=== PATIENT | male | born 1980 | race African-American/Black ===

== ENCOUNTER 2019-02-03 15:09 | Inpatient (IN) | payer MEDICAID ==
[~2019-02-03] VITALS: Ht 182.9 cm; Wt 87.1 kg
[~2019-02-03 15:09] MED LIST: BUPR-93 PO; OLAN10TA6 PO; OMEP20 PO
[2019-02-03] MEDS ORDERED: MIDAZOLAM HCL 5 MG/ML VIAL ONE (15:36)
[2019-02-03] MEDS ORDERED: MIDAZOLAM HCL 5 MG/ML VIAL IM ONE (15:45)
[2019-02-03] MEDS ORDERED: LORazepam 2 MG TABLET PO ONE ×2 (16:30→20:15)
[2019-02-03] MEDS ORDERED: QUEtiapine FUMARATE 100 MG TABLET PO ONE (16:45)
[2019-02-03] MEDS ORDERED: GLYCERIN 1 GM RECTAL SUPPOSITORY [PEDIATRIC] PR ONE (17:00)
[2019-02-03 17:30] LABS: BASOPHILS % (AUTO) 0.4 % (0.0-2.0); EOSINOPHILS % (AUTO) 0.2 % (1.0-6.0); HEMOGLOBIN 17.7 g/dL (13.5-17.5); LYMPHOCYTES # (AUTO) 2.1 K/uL (1.0-4.8); LYMPHOCYTES % (AUTO) 33.7 % (22.0-44.0); MEAN CORPUSCULAR HEMOGLOBIN 29.7 pg (26.0-34.0); MEAN CORPUSCULAR HGB CONC 33.3 G/dL (31.0-37.0); MEAN CORPUSCULAR VOLUME 89 fL (80-100); MONOCYTES # (AUTO) 0.7 K/uL (0.1-1.0); MONOCYTES % (AUTO) 11.9 % (2.0-9.0); NEUTROPHILS # (AUTO) 3.3 K/uL (1.8-7.7); NEUTROPHILS % (AUTO) 53.8 % (40.0-70.0); PLATELET COUNT (AUTO) 299 K/uL (150-450); RED BLOOD CELL COUNT(AUTO) 5.95 MIL/uL (4.50-5.90); RED CELL DISTRIBUTION WIDTH 14.2 % (11.5-14.5)
[2019-02-03 17:36] LABS: ANION GAP 8 mmol/L (8-16); CARBON DIOXIDE 30 mmol/L (22-29); CHLORIDE 97 mmol/L (98-107); CREATININE 0.86 mg/dL (0.60-1.30); GLOMERULAR FILTR. RATE CALC > 60 mL/min (>60); GLUCOSE,RANDOM 114 mg/dL (70-110); POTASSIUM 3.3 mmol/L (3.5-5.1); SODIUM SERUM 135 mmol/L (136-145); UREA NITROGEN, BLOOD 3 mg/dL (7-18)
[2019-02-03 17:46] LABS: ALANINE AMINOTRANSFERASE 47 U/L (12-78); ALBUMIN 4.6 g/dL (3.4-5.0); ALKALINE PHOSPHATASE 76 U/L (46-116); ASPARTATE AMINOTRANSFERASE 35 U/L (15-37); BILIRUBIN,TOTAL 0.6 mg/dL (0.1-1.0); TOTAL PROTEIN, SERUM 9.2 g/dL (6.4-8.2)
[2019-02-03 18:17] LABS: ACETAMINOPHEN < 2 mcg/mL (10-30)
[2019-02-03 18:23] LABS: SALICYLATE < 2.8 mg/dL (2.8-20.0)
[2019-02-03 18:30] LABS: PLATELET MORPHOLOGY COMMENT LARGE PLTS PRESENT
[2019-02-03] MEDS ORDERED: POTASSIUM CHLORIDE 20 MEQ ER TABLET PO ONE (18:45)
[2019-02-03 19:24] LABS: AMPHET/METH SCREEN,URINE POSITIVE (NEGATIVE); BARBITURATE SCREEN, URINE NEGATIVE (NEGATIVE); BENZODIAZEPINES SCREEN,URINE POSITIVE (NEGATIVE); CANNABINOID SCREEN,URINE NEGATIVE (NEGATIVE); COCAINE SCREEN,URINE POSITIVE (NEGATIVE); METHADONE SCREEN, URINE NEGATIVE (NEGATIVE); OPIATE SCREEN,URINE NEGATIVE (NEGATIVE)
[2019-02-03 19:27] LABS: PHENCYCLIDINE SCREEN,URINE NEGATIVE (NEGATIVE)
[2019-02-03] MEDS ORDERED: LORazepam 1 MG TABLET PO ONE (20:00)
[2019-02-03] MEDS ORDERED: ChlorproMAZINE HCL 25 MG TABLET PO ONE (20:00)
[2019-02-04 01:02] VITALS: BP 133/87
[2019-02-04 08:57] VITALS: BP 136/82
[2019-02-04] MEDS: LORazepam 2 MG TABLET PO PRN (09:04)
[2019-02-04] MEDS: ChlorproMAZINE HCL 50 MG TABLET PO SCH ×2 (10:25→20:35)
[2019-02-04 16:06] VITALS: BP 135/86
[2019-02-05 08:07] VITALS: BP 100/55
[2019-02-05] MEDS: ChlorproMAZINE HCL 50 MG TABLET PO SCH ×2 (08:12→20:00)
[2019-02-05] MEDS ORDERED: POTASSIUM CHLORIDE 20 MEQ ER TABLET PO ONE (13:00)
[2019-02-05 16:01] VITALS: BP 115/71
[2019-02-05 16:04] VITALS: BP 137/75
[2019-02-06] MEDS: LORazepam 2 MG TABLET PO PRN ×3 (00:59→20:54)
[2019-02-06 01:00] VITALS: BP 117/93
[2019-02-06 08:24] VITALS: BP 116/62
[2019-02-06] MEDS: ChlorproMAZINE HCL 50 MG TABLET PO SCH ×2 (08:30→20:53)
[2019-02-06 08:41] LABS: ANION GAP 9 mmol/L (8-16); CALCIUM, TOTAL 8.8 mg/dL (8.8-10.5); CARBON DIOXIDE 27 mmol/L (22-29); CHLORIDE 101 mmol/L (98-107); CREATININE 0.75 mg/dL (0.60-1.30); GLOMERULAR FILTR. RATE CALC > 60 mL/min (>60); GLUCOSE,RANDOM 96 mg/dL (70-110); POTASSIUM 3.6 mmol/L (3.5-5.1); SODIUM SERUM 137 mmol/L (136-145); UREA NITROGEN, BLOOD 7 mg/dL (7-18)
[2019-02-06 16:11] VITALS: BP 114/67
[2019-02-07 05:53] VITALS: BP 122/73
[2019-02-07] MEDS: ChlorproMAZINE HCL 50 MG TABLET PO SCH ×2 (08:53→20:23)
[2019-02-07 16:07] VITALS: BP 131/74
[2019-02-07] MEDS: LORazepam 2 MG TABLET PO PRN (16:16)
[2019-02-08 03:00] VITALS: BP 135/84
[2019-02-08 08:00] VITALS: BP 132/86
[2019-02-08] MEDS: ChlorproMAZINE HCL 50 MG TABLET PO SCH (08:25)
[2019-02-08] MEDS ORDERED: CHLO50 PO ×2 (09:34→10:39)
== END 2019-02-08 14:03 | disposition home or self-care (01) | DRG 750 ==
LOC: EMS 15:10 → B3A 19:09
DX: F25.0 Schizoaffective disorder, bipolar type (principal); Z91.14 Patient's other noncompliance with medication regimen; E87.6 Hypokalemia; F31.9 Bipolar disorder, unspecified; F41.9 Anxiety disorder, unspecified; G47.00 Insomnia, unspecified; I10 Essential (primary) hypertension; K59.00 Constipation, unspecified; F15.10 Other stimulant abuse, uncomplicated; F14.10 Cocaine abuse, uncomplicated; T45.0X2A Poisoning by antiallergic and antiemetic drugs, intentional self-harm, initial encounter; Y92.89 Other specified places as the place of occurrence of the external cause; Z88.8 Allergy status to other drugs, medicaments and biological substances; Z91.5 Personal history of self-harm
CPT/HCPCS: 84132; 93005; G0480; G0481; J2250

== ENCOUNTER 2019-03-11 15:48 | Inpatient (IN) | payer MEDICAID ==
[~2019-03-11] VITALS: Ht 182.9 cm; Wt 90.9 kg
[~2019-03-11 15:48] MED LIST changes: -BUPR-93 PO; +CHLO50 PO; -OLAN10TA6 PO; -OMEP20 PO
[2019-03-11] MEDS ORDERED: LORazepam 2 MG/ML VIAL IM ONE (16:15)
[2019-03-11] MEDS ORDERED: TUBERCULIN, PURIFIED PROTEIN DERIVATIVE 5 TU/0.1 ML SYRINGE ID ONE (16:45)
[2019-03-11] MEDS ORDERED: ACETAMINOPHEN 325 MG TABLET PO PRN (16:45)
[2019-03-11] MEDS ORDERED: LOPERAMIDE HCL 2 MG CAPSULE PO PRN (16:45)
[2019-03-11] MEDS ORDERED: GuaiFENesin/D-METHORPHAN [SUGAR-FREE] 200-20MG/10 ML SYRUP UDCUP PO PRN (16:45)
[2019-03-11] MEDS ORDERED: LORazepam 2 MG TABLET PO PRN (16:45)
[2019-03-11] MEDS ORDERED: HydrOXYzine PAMOATE 50 MG CAPSULE PO PRN (16:45)
[2019-03-11] MEDS ORDERED: OLANZapine 5 MG RAPDIS TABLET PO PRN (16:45)
[2019-03-11] MEDS ORDERED: PROMETHAZINE HCL 25 MG TABLET PO PRN (16:45)
[2019-03-11] MEDS ORDERED: MAG HYDROX/AL HYDROX/SIMETH ES 30 ML SUSPENSION UDCUP PO PRN (16:45)
[2019-03-11] MEDS ORDERED: MAGNESIUM HYDROXIDE SUSPENSION 30 ML UDCUP PO PRN (16:45)
[2019-03-11 20:11] LABS: BASOPHILS % (AUTO) 1.8 % (0.0-2.0); HEMATOCRIT 42.1 % (41-53); HEMOGLOBIN 14.1 g/dL (13.5-17.5); LYMPHOCYTES # (AUTO) 1.8 K/uL (1.0-4.8); LYMPHOCYTES % (AUTO) 35.5 % (22.0-44.0); MEAN CORPUSCULAR HEMOGLOBIN 29.9 pg (26.0-34.0); MEAN CORPUSCULAR HGB CONC 33.6 G/dL (31.0-37.0); MEAN CORPUSCULAR VOLUME 89 fL (80-100); MONOCYTES # (AUTO) 0.7 K/uL (0.1-1.0); MONOCYTES % (AUTO) 12.8 % (2.0-9.0); NEUTROPHILS # (AUTO) 2.5 K/uL (1.8-7.7); NEUTROPHILS % (AUTO) 48.9 % (40.0-70.0); PLATELET COUNT (AUTO) 203 K/uL (150-450); RED BLOOD CELL COUNT(AUTO) 4.73 MIL/uL (4.50-5.90); RED CELL DISTRIBUTION WIDTH 13.7 % (11.5-14.5)
[2019-03-11 20:16] LABS: ANION GAP 8 mmol/L (8-16); CALCIUM, TOTAL 8.8 mg/dL (8.8-10.5); CARBON DIOXIDE 29 mmol/L (22-29); CHLORIDE 102 mmol/L (98-107); CREATININE 0.73 mg/dL (0.60-1.30); GLOMERULAR FILTR. RATE CALC > 60 mL/min (>60); GLUCOSE,RANDOM 103 mg/dL (70-110); POTASSIUM 3.4 mmol/L (3.5-5.1); SODIUM SERUM 139 mmol/L (136-145); UREA NITROGEN, BLOOD 6 mg/dL (7-18)
[2019-03-11 20:22] LABS: ALANINE AMINOTRANSFERASE 28 U/L (12-78); ALBUMIN 3.2 g/dL (3.4-5.0); ALKALINE PHOSPHATASE 52 U/L (46-116); ASPARTATE AMINOTRANSFERASE 46 U/L (15-37); BILIRUBIN,TOTAL 0.9 mg/dL (0.1-1.0); TOTAL PROTEIN, SERUM 6.9 g/dL (6.4-8.2)
[2019-03-11] MEDS: OLANZapine 5 MG RAPDIS TABLET PO SCH (21:00)
[2019-03-11] MEDS: THIAMINE HCL 100 MG TABLET PO SCH (22:01)
[2019-03-11] MEDS ORDERED: INFLUENZA VIRUS VACCINE QVS 2019-20 (3YR+)/PF 60 MCG/0.5 ML SYRINGE IM ONE (23:00)
[2019-03-12 06:18] VITALS: BP 140/91
[2019-03-12] MEDS ORDERED: ONDANSETRON HCL 4 MG TABLET PO PRN (08:15)
[2019-03-12] MEDS ORDERED: MAG HYDROX/AL HYDROX/SIMETH ES 30 ML SUSPENSION UDCUP PO PRN (08:15)
[2019-03-12] MEDS ORDERED: ACETAMINOPHEN 325 MG TABLET PO PRN (08:15)
[2019-03-12] MEDS ORDERED: ALBUTEROL SULFATE HFA 90 MCG/PUFF 8 GM INHALER IH PRN (08:15)
[2019-03-12] MEDS ORDERED: PETROLATUM,WHITE 28 GM JELLY TP PRN (08:15)
[2019-03-12] MEDS ORDERED: MAGNESIUM HYDROXIDE SUSPENSION 30 ML UDCUP PO PRN (08:15)
[2019-03-12] MEDS: NALTREXONE HCL 50 MG TABLET PO SCH (08:15)
[2019-03-12] MEDS ORDERED: IBUPROFEN 600 MG TABLET PO PRN (08:15)
[2019-03-12] MEDS ORDERED: CloNIDine HCL 0.1 MG TABLET PO PRN (08:15)
[2019-03-12] MEDS: THIAMINE HCL 100 MG TABLET PO SCH ×2 (08:15→16:49)
[2019-03-12] MEDS ORDERED: LOPERAMIDE HCL 2 MG CAPSULE PO PRN (08:15)
[2019-03-12] MEDS: MULTIVITAMINS WITH MINERALS, THERAPEUTIC TABLET PO SCH (08:15)
[2019-03-12] MEDS ORDERED: BENZOCAINE/MENTHOL LOZENGE MM PRN (08:15)
[2019-03-12] MEDS ORDERED: BACITRACIN 28.4 GM OINTMENT TP PRN (08:15)
[2019-03-12] MEDS: FOLIC ACID 1 MG TABLET PO SCH (08:16)
[2019-03-12] MEDS: OMEPRAZOLE 20 MG CAPSULE PO SCH (09:26)
[2019-03-12] MEDS: DOCUSATE SODIUM 100 MG CAPSULE PO SCH (09:26)
[2019-03-12 16:05] VITALS: BP 154/88
[2019-03-12] MEDS: ZOLPIDEM TARTRATE 10 MG TABLET PO PRN (20:44)
[2019-03-12] MEDS: OLANZapine 5 MG RAPDIS TABLET PO SCH (20:44)
[2019-03-13 04:36] VITALS: BP 120/80
[2019-03-13 08:01] VITALS: BP 129/67
[2019-03-13] MEDS: OMEPRAZOLE 20 MG CAPSULE PO SCH (08:02)
[2019-03-13] MEDS: THIAMINE HCL 100 MG TABLET PO SCH ×2 (08:02→16:32)
[2019-03-13] MEDS: FOLIC ACID 1 MG TABLET PO SCH (08:03)
[2019-03-13] MEDS: MULTIVITAMINS WITH MINERALS, THERAPEUTIC TABLET PO SCH (08:03)
[2019-03-13] MEDS: DOCUSATE SODIUM 100 MG CAPSULE PO SCH (08:03)
[2019-03-13] MEDS: NALTREXONE HCL 50 MG TABLET PO SCH (08:03)
[2019-03-13] MEDS ORDERED: POTASSIUM CHLORIDE 20 MEQ ER TABLET PO ONE (09:30)
[2019-03-13 16:01] VITALS: BP 130/71
[2019-03-13] MEDS: OLANZapine 5 MG RAPDIS TABLET PO SCH (20:38)
[2019-03-13] MEDS: ZOLPIDEM TARTRATE 10 MG TABLET PO PRN (20:38)
[2019-03-14 06:31] VITALS: BP 115/68
[2019-03-14] MEDS: FOLIC ACID 1 MG TABLET PO SCH (08:14)
[2019-03-14] MEDS: NALTREXONE HCL 50 MG TABLET PO SCH (08:14)
[2019-03-14] MEDS: OMEPRAZOLE 20 MG CAPSULE PO SCH (08:14)
[2019-03-14] MEDS: DOCUSATE SODIUM 100 MG CAPSULE PO SCH (08:14)
[2019-03-14] MEDS: THIAMINE HCL 100 MG TABLET PO SCH ×2 (08:14→16:52)
[2019-03-14] MEDS: MULTIVITAMINS WITH MINERALS, THERAPEUTIC TABLET PO SCH (08:14)
[2019-03-14 08:22] VITALS: BP 125/69
[2019-03-14 16:10] VITALS: BP 129/93
[2019-03-14] MEDS: DIVALPROEX SODIUM 500 MG ER TABLET PO SCH (20:32)
[2019-03-14] MEDS: OLANZapine 5 MG RAPDIS TABLET PO SCH (20:36)
[2019-03-15 08:00] VITALS: BP 113/71
[2019-03-15] MEDS: FOLIC ACID 1 MG TABLET PO SCH (08:00)
[2019-03-15] MEDS: OMEPRAZOLE 20 MG CAPSULE PO SCH (08:00)
[2019-03-15] MEDS: THIAMINE HCL 100 MG TABLET PO SCH ×2 (08:00→16:01)
[2019-03-15] MEDS: NALTREXONE HCL 50 MG TABLET PO SCH (08:00)
[2019-03-15] MEDS: DOCUSATE SODIUM 100 MG CAPSULE PO SCH (08:00)
[2019-03-15] MEDS: MULTIVITAMINS WITH MINERALS, THERAPEUTIC TABLET PO SCH (08:00)
[2019-03-15 16:02] VITALS: BP 125/75
[2019-03-15] MEDS: OLANZapine 10 MG RAPDIS TABLET PO SCH (20:19)
[2019-03-15] MEDS: DIVALPROEX SODIUM 500 MG ER TABLET PO SCH (20:19)
[2019-03-16] MEDS: FOLIC ACID 1 MG TABLET PO SCH (08:04)
[2019-03-16] MEDS: MULTIVITAMINS WITH MINERALS, THERAPEUTIC TABLET PO SCH (08:04)
[2019-03-16] MEDS: NALTREXONE HCL 50 MG TABLET PO SCH (08:04)
[2019-03-16] MEDS: DOCUSATE SODIUM 100 MG CAPSULE PO SCH (08:04)
[2019-03-16] MEDS: OMEPRAZOLE 20 MG CAPSULE PO SCH (08:04)
[2019-03-16] MEDS: THIAMINE HCL 100 MG TABLET PO SCH ×2 (08:05→16:22)
[2019-03-16 16:01] VITALS: BP 125/73
[2019-03-16] MEDS: ZOLPIDEM TARTRATE 10 MG TABLET PO PRN (20:42)
[2019-03-16] MEDS: DIVALPROEX SODIUM 500 MG ER TABLET PO SCH (20:42)
[2019-03-16] MEDS: OLANZapine 10 MG RAPDIS TABLET PO SCH (20:43)
[2019-03-17 05:02] VITALS: BP 128/76
[2019-03-17] MEDS: NALTREXONE HCL 50 MG TABLET PO SCH (08:27)
[2019-03-17] MEDS: MULTIVITAMINS WITH MINERALS, THERAPEUTIC TABLET PO SCH (08:27)
[2019-03-17] MEDS: THIAMINE HCL 100 MG TABLET PO SCH (08:28)
[2019-03-17] MEDS: FOLIC ACID 1 MG TABLET PO SCH (08:28)
[2019-03-17] MEDS: OMEPRAZOLE 20 MG CAPSULE PO SCH (08:28)
[2019-03-17] MEDS: DOCUSATE SODIUM 100 MG CAPSULE PO SCH (08:28)
[2019-03-17] MEDS ORDERED: NALT50TA6 PO (12:08)
[2019-03-17] MEDS ORDERED: OLAN20TA35 PO (12:08)
[2019-03-17] MEDS ORDERED: DIVA500T52 PO (12:08)
== END 2019-03-17 15:25 | disposition home or self-care (01) | DRG 750 ==
LOC: EMS 15:49 → B3A 19:18
PROVIDERS: ADMIT Psychiatry & Neurology Psychiatry; ATTEND Psychiatry & Neurology Psychiatry
DX: F25.0 Schizoaffective disorder, bipolar type (principal); Z91.19 Patient's noncompliance with other medical treatment and regimen; F10.10 Alcohol abuse, uncomplicated; F15.10 Other stimulant abuse, uncomplicated; G47.00 Insomnia, unspecified; Z60.9 Problem related to social environment, unspecified; K21.9 Gastro-esophageal reflux disease without esophagitis; F19.10 Other psychoactive substance abuse, uncomplicated; K59.00 Constipation, unspecified; F41.9 Anxiety disorder, unspecified; Z63.9 Problem related to primary support group, unspecified; Z79.899 Other long term (current) drug therapy; Z91.018 Allergy to other foods; Z88.8 Allergy status to other drugs, medicaments and biological substances; Z71.51 Drug abuse counseling and surveillance of drug abuser
CPT/HCPCS: 87081; G0480; J2060; J3230

== ENCOUNTER 2019-06-04 19:03 | Inpatient (IN) | payer MEDICAID ==
[~2019-06-04] VITALS: Ht 185.4 cm; Wt 82.3 kg
[~2019-06-04 19:03] MED LIST changes: -CHLO50 PO; +DIVA500T52 PO; +NALT50TA6 PO; +OLAN20TA35 PO
[2019-06-04] MEDS ORDERED: ARIP5TAB8 PO (19:21)
[2019-06-04] MEDS ORDERED: ZIPR80CA2 PO (19:21)
[2019-06-04 19:54] LABS: BASOPHILS % (AUTO) 0.7 % (0.0-2.0); EOSINOPHILS % (AUTO) 0.1 % (1.0-6.0); HEMATOCRIT 47.3 % (41-53); HEMOGLOBIN 15.9 g/dL (13.5-17.5); LYMPHOCYTES # (AUTO) 1.2 K/uL (1.0-4.8); LYMPHOCYTES % (AUTO) 19.3 % (22.0-44.0); MEAN CORPUSCULAR HEMOGLOBIN 29.3 pg (26.0-34.0); MEAN CORPUSCULAR HGB CONC 33.6 G/dL (31.0-37.0); MEAN CORPUSCULAR VOLUME 87 fL (80-100); MONOCYTES # (AUTO) 0.6 K/uL (0.1-1.0); MONOCYTES % (AUTO) 10.2 % (2.0-9.0); NEUTROPHILS # (AUTO) 4.3 K/uL (1.8-7.7); NEUTROPHILS % (AUTO) 69.7 % (40.0-70.0); PLATELET COUNT (AUTO) 270 K/uL (150-450); RED BLOOD CELL COUNT(AUTO) 5.42 MIL/uL (4.50-5.90); RED CELL DISTRIBUTION WIDTH 14.1 % (11.5-14.5)
[2019-06-04 20:09] LABS: ANION GAP 9 mmol/L (8-16); CALCIUM, TOTAL 9.2 mg/dL (8.8-10.5); CARBON DIOXIDE 27 mmol/L (22-29); CHLORIDE 101 mmol/L (98-107); CREATININE 1.14 mg/dL (0.60-1.30); GLOMERULAR FILTR. RATE CALC > 60 mL/min (>60); GLUCOSE,RANDOM 109 mg/dL (70-110); POTASSIUM 3.8 mmol/L (3.5-5.1); SODIUM SERUM 137 mmol/L (136-145); UREA NITROGEN, BLOOD 5 mg/dL (7-18)
[2019-06-04 20:11] LABS: AMPHET/METH SCREEN,URINE POSITIVE (NEGATIVE); BARBITURATE SCREEN, URINE NEGATIVE (NEGATIVE); BENZODIAZEPINES SCREEN,URINE POSITIVE (NEGATIVE); CANNABINOID SCREEN,URINE POSITIVE (NEGATIVE); COCAINE SCREEN,URINE POSITIVE (NEGATIVE); METHADONE SCREEN, URINE NEGATIVE (NEGATIVE); OPIATE SCREEN,URINE NEGATIVE (NEGATIVE)
[2019-06-04 20:14] LABS: PHENCYCLIDINE SCREEN,URINE NEGATIVE (NEGATIVE)
[2019-06-04 20:15] LABS: ALANINE AMINOTRANSFERASE 67 U/L (12-78); ALBUMIN 4.2 g/dL (3.4-5.0); ALKALINE PHOSPHATASE 71 U/L (46-116); ASPARTATE AMINOTRANSFERASE 90 U/L (15-37); BILIRUBIN,TOTAL 0.6 mg/dL (0.1-1.0); TOTAL PROTEIN, SERUM 8.6 g/dL (6.4-8.2)
[2019-06-04] MEDS ORDERED: ARIPiprazole 5 MG TABLET PO ONE (20:15)
[2019-06-04] MEDS ORDERED: LORazepam 2 MG TABLET PO ONE ×2 (20:15→22:15)
[2019-06-04] MEDS ORDERED: LORazepam 2 MG/ML VIAL IVP ONE ×3 (20:15→22:00)
[2019-06-04] MEDS ORDERED: LORazepam 2 MG TABLET PO PRN (22:30)
[2019-06-04] MEDS ORDERED: SODIUM CHLORIDE 0.9% 1,000 ML IV ONE ×2 (22:30)
[2019-06-05] VITALS (8 sets, daily range): BP systolic 118–143; BP diastolic 78–95
[2019-06-05 08:36] LABS: CHOL/HDL RATIO 2.2 (4.2-7.3)
[2019-06-05] MEDS ORDERED: CloNIDine HCL 0.1 MG TABLET PO PRN (10:00)
[2019-06-05] MEDS ORDERED: ALBUTEROL SULFATE HFA 90 MCG/PUFF 8 GM INHALER IH PRN (10:00)
[2019-06-05] MEDS ORDERED: ACETAMINOPHEN 325 MG TABLET PO PRN (10:00)
[2019-06-05] MEDS ORDERED: GuaiFENesin/D-METHORPHAN [SUGAR-FREE] 200-20MG/10 ML SYRUP UDCUP PO PRN (10:00)
[2019-06-05] MEDS ORDERED: NICOTINE 14 MG/24 HOUR PATCH TD PRN (10:00)
[2019-06-05] MEDS ORDERED: PETROLATUM,WHITE 28 GM JELLY TP PRN (10:00)
[2019-06-05] MEDS ORDERED: MAGNESIUM HYDROXIDE SUSPENSION 30 ML UDCUP PO PRN (10:00)
[2019-06-05] MEDS ORDERED: MAG HYDROX/AL HYDROX/SIMETH ES 30 ML SUSPENSION UDCUP PO PRN (10:00)
[2019-06-05] MEDS ORDERED: IBUPROFEN 400 MG TABLET PO PRN (10:00)
[2019-06-05] MEDS ORDERED: ONDANSETRON HCL 4 MG TABLET PO PRN (10:00)
[2019-06-05] MEDS ORDERED: DOCUSATE SODIUM 100 MG CAPSULE PO PRN (10:00)
[2019-06-05] MEDS ORDERED: LOPERAMIDE HCL 2 MG CAPSULE PO PRN (10:00)
[2019-06-05] MEDS: ZOLPIDEM TARTRATE 10 MG TABLET PO PRN (20:46)
[2019-06-06 00:53] VITALS: BP 139/82
[2019-06-06 01:30] VITALS: BP 139/82
[2019-06-06] MEDS: ZIPRASIDONE HCL 80 MG CAPSULE PO SCH (06:49)
[2019-06-06 08:14] VITALS: BP 130/77
[2019-06-06 16:00] VITALS: BP 134/93
[2019-06-06 16:11] VITALS: BP 134/93
[2019-06-07 01:13] VITALS: BP 136/94
[2019-06-07] MEDS: ZOLPIDEM TARTRATE 10 MG TABLET PO PRN (01:24)
[2019-06-07 04:49] VITALS: BP 132/88
[2019-06-07] MEDS: ZIPRASIDONE HCL 80 MG CAPSULE PO SCH (06:52)
[2019-06-07 08:06] VITALS: BP 133/86
[2019-06-07] MEDS ORDERED: ZIPR80CA2 PO (10:04)
== END 2019-06-07 13:30 | disposition home or self-care (01) | DRG 750 ==
LOC: EMS 19:04 → B2S 22:44
DX: F25.1 Schizoaffective disorder, depressive type (principal); R45.851 Suicidal ideations; F14.10 Cocaine abuse, uncomplicated; F15.10 Other stimulant abuse, uncomplicated; F41.9 Anxiety disorder, unspecified; I10 Essential (primary) hypertension; F10.10 Alcohol abuse, uncomplicated; J45.909 Unspecified asthma, uncomplicated; Z88.8 Allergy status to other drugs, medicaments and biological substances; Z91.018 Allergy to other foods; Z91.5 Personal history of self-harm
CPT/HCPCS: G0480; J2060